=== PATIENT | male | born 1955 | race African-American/Black ===

== ENCOUNTER 2019-07-15 20:39 | Emergency (ER) | payer OTHER ==
[~2019-07-15] VITALS: Ht 182.9 cm; Wt 90.7 kg
--- NOTE | 2019-07-15 20:39 | NUR ---
Placed in room 08 . Placed on student support services director, blood pressure machine and pulse oximeter. To gown for exam. Side rails up. Report given to Gonzalo SCOTT.
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
[2019-07-15 20:44] VITALS: BP_SYST 152
--- NOTE | 2019-07-15 20:50 | NUR ---
Pt becoming restless, repetively states "who are you, what are you doing to me" regardless of staff actions or communications. Pt actions innapropriate for environment and stimulus.
--- NOTE | 2019-07-15 20:55 | NUR ---
Pt Becoming increasingly agitated, confused. , Ed Staff attempted to de-escalate the situation by using therapeutic communications and de escalation techniques. Encouraging patient to rest. Patient lashing out verbally at staff, swearing, making threats.
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
--- NOTE | 2019-07-15 21:05 | NUR ---
Pt unhappy about "friend" leaving without him, states "she's a motherfucking witch" Continues to pace ED, making agressive gestures and shouting obscenities. Pt attempting to swing arms at staff, shouting threats. Pt states "Im fitting to fuck this place up, fuck you up".
--- NOTE | 2019-07-15 21:10 | NUR ---
Pt continues to leave room, pace ed, attempting to enter other patients rooms. Pt picking up objects from ED and attempting to use as weapons.
[2019-07-15] MEDS ORDERED: NACL 0.9% 1,000 ML IV ONE (21:15)
[2019-07-15] MEDS ORDERED: LORazepam 2 MG/ML VIAL IM ONE (21:15)
[2019-07-15] MEDS ORDERED: HALOPERIDOL LACTATE 5 MG/ML VIAL IM ONE (21:15)
--- NOTE | 2019-07-15 21:15 | NUR ---
Pt unable to contract for safety, pt placed in restraints for the safety of patients, staff and patient himself. Pt placed in Bed using assistance of 5 ED Staff members for safety. Airway maintained, Pt placed in supine position.
--- NOTE | 2019-07-15 22:08 | NUR ---
In and Out catheter with use of sterile technique. Immediate return of 200 ml dark brown, blood tinged urine noted. Urine sample collected and sent to lab. Pt agitated during procedure. Patient unable to toilet self.
--- NOTE | 2019-07-15 22:18 | NUR ---
Pt resting in ED bed. Patient circulatory check is within normal limits. Pt vital signs stable. Pt remains to be confused, agitated when questioned. Pt denies pain, Unable to give Person, place, event for level of orientation. [place] provided for comfort. No acute signs of distress, pt remains attached to vital signs and lard mixer. Will continue to monitor.
[2019-07-15 22:20] LABS: BASOPHILS # (AUTO) 0.1 K/uL (0.0-0.2); BASOPHILS % (AUTO) 0.6 % (0.0-2.0); HEMATOCRIT 39.6 % (36-54); MEAN CORPUSCULAR HEMOGLOBIN 30 pg (27-31); MEAN CORPUSCULAR HGB CONC 32 % (32-36); MEAN CORPUSCULAR VOLUME 95 fL (79.0-98.0)
--- NOTE | 2019-07-15 22:20 | NUR ---
Pt UDS Positive for PCP/Phencyclidine
[2019-07-15 22:25] LABS: ANION GAP 25 (5-15); CALCIUM 9.2 mg/dL (8.4-11.0); CHLORIDE 101 mmol/L (98-107); CREATININE 2.34 mg/dL (0.55-1.30); GLUCOSE 184 mg/dL (70-99); POTASSIUM 3.5 mmol/L (3.5-5.1); SODIUM SERUM 140 mmol/L (136-145); UREA NITROGEN, BLOOD 21 mg/dL (8-21)
[2019-07-15 22:26] LABS: BARBITURATE, URINE NEGATIVE (NEG <=200); BENZODIAZEPINE, URINE NEGATIVE (NEG <=150); CANNABINOID, URINE NEGATIVE (NEG <=50); COCAINE, URINE NEGATIVE (NEG <=150); METHAMPHETAMINES SCREEN,URINE NEGATIVE (NEG <=500); OPIATE, URINE NEGATIVE (NEG <=100); PHENCYCLIDINE SCREEN,URINE POSITIVE (NEG <=25); UR TRICYCLIC ANTIDEPRESSANTS NEGATIVE (NEG <=300); URINE AMPHETAMINE NEGATIVE (NEG <=500); URINE METHADONE NEGATIVE (NEG <=200); URINE OXYCODONE SCREEN NEGATIVE (NEG <=100); URINE PROPOXYPHENE SCREEN NEGATIVE (NEG <=300)
[2019-07-15 22:28] LABS: GFR AFRICAN AMERICAN 37 mL/min (>90)
[2019-07-15 22:32] LABS: ALANINE AMINOTRANSFERASE 19 U/L (12-78); ALBUMIN 4.4 g/dL (3.4-4.8); ASPARTATE AMINOTRANSFERASE 23 U/L (10-37); TOTAL BILIRUBIN 0.3 mg/dL (0.0-1.0)
[2019-07-15 22:34] LABS: ACETAMINOPHEN < 1 ug/mL (1-30); ALCOHOL, BLOOD < 3 mg/dL (<10)
[2019-07-15 22:39] LABS: EOSINOPHILS % (AUTO) 0.1 % (0.0-4.0); HEMOGLOBIN 12.5 g/dL (14.0-18.0); LYMPHOCYTES # (AUTO) 2.2 K/uL (1.0-5.5); LYMPHOCYTES % (AUTO) 18.6 % (20.5-51.5); MONOCYTES # (AUTO) 0.9 K/uL (0.0-1.0); MONOCYTES % (AUTO) 7.6 % (1.7-9.3); NEUTROPHILS # (AUTO) 8.8 K/uL (1.8-7.7); NEUTROPHILS % (AUTO) 73.1 % (40.0-70.0); RED BLOOD CELL COUNT(AUTO) 4.15 MIL/uL (4.2-6.2); RED CELL DISTRIBUTION WIDTH 17.1 % (9.0-15.0); WHITE BLOOD COUNT (AUTO) 12.1 K/uL (4.8-10.8)
[2019-07-15 22:41] LABS: PLATELET COUNT (AUTO) 81 K/uL (130-430)
--- NOTE | 2019-07-15 23:10 | NUR ---
Pt resting in ED bed. Patient circulatory check is within normal limits. Pt vital signs stable. Pt remains to be confused, agitated when questioned. Pt denies pain, Unable to give Person, place, event for level of orientation. [place] provided for comfort. No acute signs of distress, pt remains attached to vital signs and cardiac cath lab radiology technologist. Will continue to monitor.
--- NOTE | 2019-07-15 23:20 | NUR ---
Pt given new warm blanket for comfort. Old blanket removed. Pt Afebrile
--- NOTE | 2019-07-16 00:15 | NUR ---
Pt resting in ED bed. Patient circulatory check is within normal limits. Pt vital signs stable. Pt remains to be confused, agitated when questioned. Pt denies pain, Unable to give Person, place, event for level of orientation. [place] provided for comfort. No acute signs of distress, pt remains attached to vital signs and school lunch monitor. Will continue to monitor.
--- NOTE | 2019-07-16 00:45 | NUR ---
Pt periodically shouting obscenities, mumbling incoherently and unable to answer basic questions or follow verbal commands.
--- NOTE | 2019-07-16 01:21 | NUR ---
Pt resting in ED bed. Patient circulatory check is within normal limits. Pt vital signs stable. Pt remains to be confused, agitated when questioned. Pt denies pain, Unable to give Person, place, event for level of orientation. [place] provided for comfort. No acute signs of distress, pt remains attached to vital signs and engine monitor. Will continue to monitor.
--- NOTE | 2019-07-16 02:30 | NUR ---
Pt resting in ED bed. Patient circulatory check is within normal limits. Pt vital signs stable. [place] provided for comfort. No acute signs of distress, pt remains attached to vital signs and hospital monitor. Will continue to monitor.
--- NOTE | 2019-07-16 05:21 | NUR ---
Restraints were removed
[2019-07-16 05:50] VITALS: BP_SYST 131
--- NOTE | 2019-07-16 05:50 | NUR ---
Patient given written and verbal discharge instructions and verbalizes understanding. ER MD discussed with patient the results and treatment provided. Patient in stable condition. ID arm band removed. IV catheter removed intact and dressing applied, no active bleeding. No Rx given. Patient educated on pain management and to follow up with PMD. Pain Scale 0/10. Pt sent home with all belongings. Pt had x1 - 100.00 bill, keys. Girlfriend Lola had cellphone, Friend named EJ picked patient up from waiting room [place] for questions provided and answered. Medication side effect fact sheet provided.
== END 2019-07-16 05:50 | disposition home or self-care (01) ==
LOC: SED 20:39
DX: F16.10 Hallucinogen abuse, uncomplicated (principal); R41.82 Altered mental status, unspecified
CPT/HCPCS: 36415; 80053; 80307; 85025; 96360; 96372; 99285; G0480; G0481; G0482; J1630; J2060; J7030